=== PATIENT | male | born 1985 | race Caucasian/White ===

== ENCOUNTER 2023-01-05 18:17 | Emergency (ER) | payer OTHER ==
[~2023-01-05] VITALS: Ht 175.3 cm; Wt 65.8 kg
[2023-01-05 18:17] VITALS: BP_SYST 151; PULSE 80; RESP 18; TEMP 98.2; O2SAT 99
[2023-01-05] MEDS ORDERED: TRANEXAMIC ACID 1,000 MG/10 ML VIAL TP ONE (18:30)
[2023-01-05] MEDS ORDERED: TRANEXAMIC ACID 1,000 MG/10 ML VIAL ONE (18:36)
[2023-01-05] MEDS ORDERED: NACL 0.9% 1,000 ML IV ONE (18:45)
[2023-01-05] MEDS ORDERED: DIPHTH,PERTUSS(ACELL),TET VAC 0.5 ML VIAL (Tdap) I.M. ONE (19:00)
[2023-01-05 19:04] LABS: BASOPHILS # (AUTO) 0.1 K/uL (0.0-0.2); BASOPHILS % (AUTO) 0.6 % (0.0-2.0); EOSINOPHILS # (AUTO) 0.2 K/uL (0.0-0.4); EOSINOPHILS % (AUTO) 1.9 % (0.0-4.0); HEMATOCRIT 41.6 % (36-54); HEMOGLOBIN 13.6 g/dL (14.0-18.0); LYMPHOCYTES # (AUTO) 2.7 K/uL (1.0-5.5); LYMPHOCYTES % (AUTO) 34.2 % (20.5-51.5); MEAN CORPUSCULAR HEMOGLOBIN 29 pg (27-31); MEAN CORPUSCULAR HGB CONC 33 % (32-36); MEAN CORPUSCULAR VOLUME 90 fL (79.0-98.0); MONOCYTES # (AUTO) 0.4 K/uL (0.0-1.0); MONOCYTES % (AUTO) 5.4 % (1.7-9.3); NEUTROPHILS # (AUTO) 4.6 K/uL (1.8-7.7); NEUTROPHILS % (AUTO) 57.9 % (40.0-70.0); PLATELET COUNT (AUTO) 293 K/uL (130-430); RED BLOOD CELL COUNT(AUTO) 4.64 MIL/uL (4.2-6.2); RED CELL DISTRIBUTION WIDTH 14.3 % (9.0-15.0); WHITE BLOOD COUNT (AUTO) 7.9 K/uL (4.8-10.8)
[2023-01-05 19:28] LABS: CALCIUM 8.5 mg/dL (8.4-11.0); CREATININE 0.92 mg/dL (0.55-1.30); POTASSIUM 4.1 mmol/L (3.5-5.1)
[2023-01-05 19:33] LABS: ALBUMIN 3.7 g/dL (3.4-4.8); TOTAL BILIRUBIN 0.4 mg/dL (0.0-1.0); TOTAL PROTEIN, SERUM 6.5 g/dL (6.4-8.3)
[2023-01-05 19:38] LABS: PROTHROMBIN TIME 10.6 SECS (9.5-12.5)
[2023-01-05] MEDS ORDERED: LIDOCAINE 2%, 20 ML MDV INJ ONE (19:45)
[2023-01-05] MEDS ORDERED: iohexoL 350 mgI/mL, 100 ML INFUS..BTL IV ONE (20:15)
[2023-01-05] MEDS ORDERED: ACET-2634 PO (21:48)
[2023-01-05 22:06] VITALS: BP_SYST 143; PULSE 91; RESP 20; O2SAT 99
== END 2023-01-05 21:59 | disposition home or self-care (01) ==
LOC: SED 18:17
DX: S81.011A Laceration without foreign body, right knee, initial encounter (principal); Z79.899 Other long term (current) drug therapy; W26.0XXA Contact with knife, initial encounter; Y93.89 Activity, other specified; Y92.89 Other specified places as the place of occurrence of the external cause; Y99.8 Other external cause status
CPT/HCPCS: 99285; 73700; 80053; 85025; 85610; 85730; 36415; 76376; 90715; 90471; 12002; Q9967; J2001; J3490; J7030